=== PATIENT | female | born 1990 | race Caucasian/White ===

== ENCOUNTER 2017-06-07 07:06 | Emergency (ER) | payer MEDICARE, MEDICAID ==
[2017-06-07] MEDS ORDERED: NS 0.9% 1000 ML* 1,000 ML IV ONE (07:33)
[2017-06-07 07:57] LABS: ABS Basophils 0.1 10^3/ul (0-0.2); ABS Eosinophils 0.6 10^3/ul (0-0.6); ABS Lymphocytes 2.3 10^3/ul (1.0-4.8); ABS Monocytes 0.5 10^3/ul (0-0.8); ABS Neutrophils 6.3 10^3/ul (1.5-7.7); ABS Nucleated RBC 0 10^3/ul; Eosinophil % 6.3 % (0-6); Hematocrit 40 % (35-47); Hemoglobin 13.5 g/dl (12.0-16.0); Lymphocyte % 23.6 % (25-47); Mean Corpuscular HGB Conc 34 g/dl (31-36); Mean Corpuscular Hemoglobin 29 pg (27-31); Mean Corpuscular Volume 84 fL (80-97); Mean Platelet Volume 9 um3 (7.4-10.4); Nucleated Red Blood Cells % 0; Platelet Count 305 10^3/ul (150-450); Red Blood Count 4.71 10^6/ul (4.0-5.4); Red Cell Distribution Width 14 % (10.5-15); White Blood Count 9.8 10^3/ul (3.5-10.8)
--- NOTE | 2017-06-07 08:10 | RAD ---
HISTORY: Shortness of breath COMPARISONS: None VIEWS: 1: frontal portable view of the chest at 8:00 AM FINDINGS: LINES AND TUBES: None. CARDIOMEDIASTINAL SILHOUETTE: The cardiomediastinal silhouette is normal for portable technique. PLEURA: The costophrenic angles are sharp. No pleural abnormalities are noted. LUNG PARENCHYMA: The lungs are clear. ABDOMEN: The upper abdomen is clear. There is no subphrenic gas. BONES AND SOFT TISSUES: No bone or soft tissue abnormalities are noted. IMPRESSION: NO ACTIVE CARDIOPULMONARY DISEASE.
[2017-06-07 08:15] LABS: EGFR Non-African American 79.2 (>60)
[2017-06-07] MEDS ORDERED: Azithromycin TAB* 250 MG PO ONE (08:41)
[2017-06-07 09:14] VITALS: BP 134/69
[2017-06-07] MEDS ORDERED: NS 0.9% 1000 ML* 1,000 ML IV SCH (09:15)
--- NOTE | 2017-06-07 09:23 | ED ---
Juan A Reed Angela, scribed for Sriram Morales MD on 06/07/17 at 0727 . Syncope/Near Syncope - HPI Summary HPI Summary: This pt is a 27 y/o female presenting to [facility] c/o near syncopal episode today. Pt reports she went to work at 5:00 AM to [facility]. About 1 hour later, she states she felt like she couldn't breathe and her throat was closing up. Pt notes she felt "like blacking out" and could not gain her balance. She then went on break to drink some water, but her symptoms began again. Pt currently c/ o mild headache, lightheadedness, SOB, dry mouth. She states she is unable to take a deep breath and has pain under her breasts. Denies chest pain, palpitations, fever. Pt has never had these symptoms in the past before. Pt currently has a mild sore throat, she thought she had strep throat 1-2 weeks ago. Denies any PMHx. Pt is a former smoker, quit 2 weeks ago, and former alcohol user, quit 2 years ago. 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 [employer] Onset/Duration: Sudden Onset, Resolved Timing: Constant Context: Unwitnessed Activity At Onset: Other - while working in [facility] Aggravating Factor(s): Nothing Alleviating Factor(s): Nothing Associated Signs And Symptoms: Headache, Lightheadedness, Shortness Of Breath - Allergies/Home Medications Allergies/Adverse Reactions: Allergies Allergy/AdvReac Type Severity Reaction Status Date / Time cefaclor [From [facility]] Allergy Unknown Verified 06/07/17 07:22 Reaction Details PMH/Surg Hx/FS Hx/Imm Hx Endocrine/Hematology History: Denies: Hx Diabetes Cardiovascular History: Denies: Hx Hypertension History: Reports: Hx Kidney Stones Sensory History: Reports: Hx Deafness EENT History: Reports: Hx Deafness - Surgical History Surgery Procedure, Year, and Place: Kidney stone removal Infectious Disease History: No Infectious Disease History: Denies: Traveled Outside the [place] in Last 30 Days - Family History Known Family History: Positive: None - Social History Alcohol Use: None Alcohol Amount: last alcohol drink was 2 years ago Substance Use Type: Reports: None Smoking Status (MU): Former Smoker - quit 2 weeks ago Review of Systems Negative: Fever, Chills ENT: Other - dry mouth Positive: Sore Throat Negative: Palpitations, Chest Pain Positive: Shortness Of Breath Musculoskeletal: Other - pain under her breasts Neurological: Other - POS: lightheadedness Positive: Headache All Other Systems Reviewed And Are Negative: Yes Physical Exam - Summary Physical Exam Summary: VITAL SIGNS: Reviewed. GENERAL: Patient is a well-developed and nourished female who is lying comfortable in the stretcher. Patient is not in any acute respiratory distress. Pt communicates via sign language. HEAD AND FACE: No signs of trauma. No ecchymosis, hematomas or skull depressions. No sinus tenderness. EYES: PERRLA, EOMI x 2, No injected conjunctiva, no nystagmus. EARS: Pt is deaf. Ear canals and tympanic membranes are within normal limits. MOUTH: Oropharynx within normal limits. Oral mucosa is dry. NECK: Supple, trachea is midline, no adenopathy, no JVD, no carotid bruit, no c- spine tenderness, neck with full ROM. CHEST: Symmetric, no tenderness at palpation LUNGS: Clear to auscultation bilaterally. No wheezing or crackles. CVS: Regular rate and rhythm, S1 and S2 present, no murmurs or gallops appreciated. ABDOMEN: Soft, non-tender. No signs of distention. No rebound no guarding, and no masses palpated. Bowel sounds are normal. EXTREMITIES: FROM in all major joints, no edema, no cyanosis or clubbing. NEURO: Alert and oriented x 3. No acute neurological deficits. Speech is normal and follows commands. SKIN: Dry and warm Triage Information Reviewed: Yes Vital Signs On Initial Exam: Initial Vitals Temp Pulse Resp BP Pulse Ox 98.3 F 86 18 132/71 95 06/07/17 07:10 06/07/17 07:10 06/07/17 07:10 06/07/17 07:10 06/07/17 07:10 Vital Signs Reviewed: Yes Diagnostics - Vital Signs Vital Signs Temp Pulse Resp BP Pulse Ox 06/07/17 07:10 98.3 F 86 18 132/71 95 - Laboratory Lab Results: Lab Results 06/07/17 06/07/17 06/07/17 Range/Units 06:52 06:52 07:45 WBC (3.5-10.8) 10^3/ul RBC (4.0-5.4) 10^6/ul Hgb (12.0-16.0) g/dl Hct (35-47) % MCV (80-97) fL MCH (27-31) pg MCHC (31-36) g/dl RDW (10.5-15) % Plt Count (150-450) 10^3/ul MPV (7.4-10.4) um3 Neut % (Auto) (38-83) % Lymph % (Auto) (25-47) % Sibley % (Auto) (0-7) % Eos % (Auto) (0-6) % Baso % (Auto) (0-2) % Absolute Neuts (auto) (1.5-7.7) 10^3/ul Absolute Lymphs (auto) (1.0-4.8) 10^3/ul Absolute Monos (auto) (0-0.8) 10^3/ul Absolute Eos (auto) (0-0.6) 10^3/ul Absolute Basos (auto) (0-0.2) 10^3/ul Absolute Nucleated RBC 10^3/ul Nucleated RBC % Sodium 135 (133-145) mmol/L Potassium 3.7 (3.5-5.0) mmol/L Chloride 103 (101-111) mmol/L Carbon Dioxide 26 (22-32) mmol/L Anion Gap 6 (2-11) mmol/L BUN 15 (6-24) mg/dL Creatinine 0.86 (0.51-0.95) mg/dL Est GFR ( Amer) 101.8 (>60) Est GFR (Non-Af Amer) 79.2 (>60) BUN/Creatinine Ratio 17.4 (8-20) Glucose 104 H (70-100) mg/dL Lactic Acid (0.5-2.0) mmol/L Calcium 9.3 (8.6-10.3) mg/dL Magnesium 1.8 L (1.9-2.7) mg/dL Total Bilirubin 0.20 (0.2-1.0) mg/dL AST 16 (13-39) U/L ALT 28 (7-52) U/L Alkaline Phosphatase 128 H (34-104) U/L Troponin I 0.00 (<0.04) ng/mL B-Natriuretic Peptide ( - 100) pg/mL Total Protein 7.1 (6.4-8.9) g/dL Albumin 3.9 (3.2-5.2) g/dL Globulin 3.2 (2-4) g/dL Albumin/Globulin Ratio 1.2 (1-3) TSH 1.93 (0.34-5.60) mcIU/mL Beta HCG, Quant < 0.60 mIU/mL Serum Alcohol < 10 (<10) mg/dL Influenza A (Rapid) Negative (Negative) Influenza B (Rapid) Negative (Negative) Group A Strep Rapid Positive A (Negative) 06/07/17 06/07/17 06/07/17 Range/Units 07:45 07:45 07:45 WBC 9.8 (3.5-10.8) 10^3/ul RBC 4.71 (4.0-5.4) 10^6/ul Hgb 13.5 (12.0-16.0) g/dl Hct 40 (35-47) % MCV 84 (80-97) fL MCH 29 (27-31) pg MCHC 34 (31-36) g/dl RDW 14 (10.5-15) % Plt Count 305 (150-450) 10^3/ul MPV 9 (7.4-10.4) um3 Neut % (Auto) 64.0 (38-83) % Lymph % (Auto) 23.6 L (25-47) % Sibley % (Auto) 5.3 (0-7) % Eos % (Auto) 6.3 H (0-6) % Baso % (Auto) 0.8 (0-2) % Absolute Neuts (auto) 6.3 (1.5-7.7) 10^3/ul Absolute Lymphs (auto) 2.3 (1.0-4.8) 10^3/ul Absolute Monos (auto) 0.5 (0-0.8) 10^3/ul Absolute Eos (auto) 0.6 (0-0.6) 10^3/ul Absolute Basos (auto) 0.1 (0-0.2) 10^3/ul Absolute Nucleated RBC 0 10^3/ul Nucleated RBC % 0 Sodium (133-145) mmol/L Potassium (3.5-5.0) mmol/L Chloride (101-111) mmol/L Carbon Dioxide (22-32) mmol/L Anion Gap (2-11) mmol/L BUN (6-24) mg/dL Creatinine (0.51-0.95) mg/dL Est GFR ( Amer) (>60) Est GFR (Non-Af Amer) (>60) BUN/Creatinine Ratio (8-20) Glucose (70-100) mg/dL Lactic Acid 1.2 (0.5-2.0) mmol/L Calcium (8.6-10.3) mg/dL Magnesium (1.9-2.7) mg/dL Total Bilirubin (0.2-1.0) mg/dL AST (13-39) U/L ALT (7-52) U/L Alkaline Phosphatase (34-104) U/L Troponin I (<0.04) ng/mL B-Natriuretic Peptide 18 ( - 100) pg/mL Total Protein (6.4-8.9) g/dL Albumin (3.2-5.2) g/dL Globulin (2-4) g/dL Albumin/Globulin Ratio (1-3) TSH (0.34-5.60) mcIU/mL Beta HCG, Quant mIU/mL Serum Alcohol (<10) mg/dL Influenza A (Rapid) (Negative) Influenza B (Rapid) (Negative) Group A Strep Rapid (Negative) Result Diagrams: 06/07/17 07:45 06/07/17 07:45 Lab Statement: Any lab studies that have been ordered have been reviewed, and results considered in the medical decision making process. - Radiology Chest XR Xray Interpretation: No Acute Changes - IMPRESSION: No active cardiopulmonary disease. Dr. Morales has reviewed this radiology report. Radiology Interpretation Completed By: Radiologist - EKG 07:46 Cardiac Rate: NL EKG Rhythm: Sinus Rhythm - at 65 bpm EKG Interpretation: No ST elevation Course/Dx Assessment/Plan: This pt is a 27 y/o female presenting to [facility] c/o near syncopal episode today. Pt reports she went to work at 5:00 AM to [employer]. About 1 hour later, she states she felt like she couldn't breathe and her throat was closing up. Pt notes she felt "like blacking out" and could not gain her balance. She then went on break to drink some water, but her symptoms began again. Pt currently c/o mild headache, lightheadedness, dry mouth. She states she is unable to take a deep breath and has pain under her breasts. Denies chest pain, palpitations, fever. Test results without any significant abnormalities. Influenza A and B are both negative. Rapid strep test is positive for strep throat. Chest XR shows no active cardiopulmonary disease. She was given IVF for dehydration. Therefore, pt will be discharged to home with prescriptions for ibuprofen and azithromycin and follow up from her PCP. She is instructed to return to the ED for any worsening symptoms. Pt is hemodynamically stable, alert and oriented x3. I discussed all the findings and test results with the patient. Patient was instructed to return to the emergency room immediately if any of the symptoms return or worsens. Plan of care was discussed with the patient and understands and agrees. All questions were answered at patient satisfaction. There were no further complaints or concerns. Lung exam before discharge: CTA B/L. Good air exchange. No wheezing or crackles heard. CVS: S1 and S2 present. No murmurs appreciated. Patient is alert and oriented x 3. Patient is hemodynamically stable. Patient will be discharged home with follow up PCP in the next 2-3 days - Diagnoses Provider Diagnoses: Strep pharyngitis, Dehydration Discharge - Discharge Plan Condition: Stable Disposition: HOME Prescriptions: Azithromycin TAB* [Zithromax TAB (Z-SINAI) 250 mg #6 tabs] 250 mg PO DAILY #4 tab Ibuprofen TAB* [Motrin TAB* 600 MG] 600 mg PO Q8H PRN #30 tab PRN Reason: Pain Patient Education Materials: Strep Throat (ED) Forms: *Work Release Referrals: Lissette Au BUSHING AND BROACH OPERATOR [Primary Care Provider] - 3 Days Additional Instructions: Please follow up with your primary care provider. RETURN TO THE ED FOR ANY WORSENING SYMPTOMS. The documentation as recorded by the Juan A hall Angela accurately reflects the service I personally performed and the decisions made by me, Sriram Morales MD.
== END 2017-06-07 09:14 | disposition home or self-care (01) ==
LOC: ED 07:06
DX: J02.0 Streptococcal pharyngitis (principal); E86.0 Dehydration; R51 Headache; J02.9 Acute pharyngitis, unspecified; R42 Dizziness and giddiness; R06.02 Shortness of breath; Z87.891 Personal history of nicotine dependence
CPT/HCPCS: 36415; 71045; 80053; 80320; 83605; 83735; 83880; 84443; 84484; 84702; 85025; 87502; 87651; 93005; 96374; 99283; A9270-GY; G0480

== ENCOUNTER 2017-08-31 11:34 | Emergency (ER) | payer MEDICARE, MEDICAID ==
[2017-08-31] MEDS ORDERED: Ibuprofen TAB* 800 MG PO ONE (12:12)
--- NOTE | 2017-08-31 13:00 | RAD ---
INDICATION: "Dropped mail box on foot". COMPARISON: None. TECHNIQUE: 3 views of the right foot were obtained. FINDINGS: The adequately corticated bones are properly aligned. Joint spaces appear maintained. No fracture, dislocation or focal bony abnormality is seen. IMPRESSION: Normal radiograph of the right foot. If the patient's symptoms persist, follow-up imaging is recommended.
--- NOTE | 2017-08-31 13:14 | ED ---
Lower Extremity - HPI Summary HPI Summary: Patient presents with right foot pain status post dropping a mailbox on it earlier today. She is able to bear weight but it is painful. She has some numbness over the top of her foot as well. Denies any break in the skin or bleeding. She is tried ice which seems to make it worse. Has not taken anything for pain prior to arrival. No previous injury to this foot. Note: Tubal ligation - History of Current Complaint Chief Complaint: EDExtremityLower Stated Complaint: RT FOOT INJURY/PAIN Time Seen by Provider: 08/31/17 11:47 Hx Obtained From: Patient Pain Intensity: 8 - Allergies/Home Medications Allergies/Adverse Reactions: Allergies Allergy/AdvReac Type Severity Reaction Status Date / Time [facility] [[facility] Allergy Unknown Verified 08/31/17 11:43 Reaction Details Home Medications: Home Medications NK [No Home Medications Reported] 08/31/17 [History Confirmed 08/31/17] PMH/Surg Hx/FS Hx/Imm Hx Previously Healthy: Yes Endocrine/Hematology History: Denies: Hx Anticoagulant Therapy, Hx Blood Disorders, Hx Diabetes, Hx Unexplained Bleeding, Hx Coagulopothy Cardiovascular History: Denies: Hx Hypertension History: Reports: Hx Kidney Stones Sensory History: Reports: Hx Deafness - uses sign language EENT History: Reports: Hx Deafness - uses sign language - Surgical History Surgery Procedure, Year, and Place: Kidney stone removal Infectious Disease History: No Infectious Disease History: Denies: Traveled Outside the [place] in Last 30 Days - Family History Known Family History: Positive: None - Social History Alcohol Use: Rare Alcohol Amount: last alcohol drink was 2 years ago Hx Substance Use: No Substance Use Type: Reports: None Hx Tobacco Use: Yes - not currently Smoking Status (MU): Former Smoker Review of Systems Negative: Vomiting, Nausea Positive: no symptoms reported Positive: Arthralgia. Negative: Myalgia, Decreased ROM, Edema Skin: Negative Negative: Rash, Bruising Positive: Numbness. Negative: Weakness, Paresthesia Psychological: Normal All Other Systems Reviewed And Are Negative: Yes Physical Exam Triage Information Reviewed: Yes Vital Signs On Initial Exam: Initial Vitals Temp Pulse Resp BP Pulse Ox 97.6 F 75 16 155/114 97 08/31/17 11:40 08/31/17 11:40 08/31/17 11:40 08/31/17 11:40 08/31/17 11:40 Vital Signs Reviewed: Yes Appearance: Positive: Well-Appearing, No Pain Distress, Well-Nourished Skin: Positive: Warm, Skin Color Reflects Adequate Perfusion, Dry - No erythema , no ecchymosis, no break in skin over the dorsum of right foot where mailbox fell Head/Face: Positive: Normal Head/Face Inspection Eyes: Positive: EOMI ENT: Negative: Hearing grossly normal - Patient is deaf - we communicate by basic sign language and writing on a piece of paper Respiratory/Lung Sounds: Positive: Breath Sounds Present Cardiovascular: Positive: Pulses are Symmetrical in both Upper and Lower Extremities. Negative: Leg Edema Left, Leg Edema Right Musculoskeletal: Positive: Strength/ROM Intact, Pain @ - Rt dorsal MT's - no gross deformity, no crepitus Neurological: Positive: Normal, Sensory/Motor Intact, Alert, Oriented to Person Place, Time Psychiatric: Positive: Normal Diagnostics - Vital Signs Vital Signs Temp Pulse Resp BP Pulse Ox 08/31/17 11:40 97.6 F 75 16 155/114 97 - Laboratory Lab Statement: Any lab studies that have been ordered have been reviewed, and results considered in the medical decision making process. Lower Extremity Course/Dx - Course Course Of Treatment: XR: no fx, no dislocation - Diagnoses Provider Diagnoses: Contusion of right foot Discharge - Sign-Out/Discharge Documenting (check all that apply): Discharge/Admit/Transfer - Discharge Plan Condition: Stable Disposition: HOME Patient Education Materials: Foot Contusion (ED), Crutch Instructions (ED) Referrals: Lissette Au NP [Primary Care Provider] - Additional Instructions: REST, ICE, ELEVATE AND WEAR MIGUEL WRAP FOR COMFORT FROM PAIN/SWELLING You may take ibuprofen alternating with acetaminophen as needed for pain If pain persists beyond 2 weeks, follow-up with PCP *If you develop numbness, tingling, weakness, swelling or skin discoloration, loosen MIGUEL wrap and elevate leg for 20 minutes. If symptoms persist, return to ED - Billing Disposition and Condition Condition: STABLE Disposition: Home
[2017-08-31 13:40] VITALS: BP 139/67
== END 2017-08-31 13:39 | disposition home or self-care (01) ==
LOC: ED 11:34
DX: S90.31XA Contusion of right foot, initial encounter (principal); W20.8XXA Other cause of strike by thrown, projected or falling object, initial encounter; Y93.9 Activity, unspecified; Y92.9 Unspecified place or not applicable; H91.93 Unspecified hearing loss, bilateral; Z87.442 Personal history of urinary calculi; Z87.891 Personal history of nicotine dependence; Z88.1 Allergy status to other antibiotic agents
CPT/HCPCS: 99282; A9270-GY

== ENCOUNTER 2017-09-06 14:58 | Emergency (ER) | payer MEDICAID, MEDICARE, OTHER ==
[2017-09-06 16:13] VITALS: BP 110/76
--- NOTE | 2017-09-06 16:21 | ED ---
Lower Extremity - HPI Summary HPI Summary: 27 yr old with foot injury by dropping mail bin on right foot on 08/31. She feels totally fine, recovered and is walking with no issues at all. She is asking for a return to work note. Sign language interpretor was utilized during history, physical and explaining return to work and discharge instruction. - History of Current Complaint Chief Complaint: UCLowerExtremity Stated Complaint: WC-RT FOOT INJURY Time Seen by Provider: 09/06/17 16:08 Hx Last Menstrual Period: July 2017 Pain Intensity: 0 - Allergies/Home Medications Allergies/Adverse Reactions: Allergies Allergy/AdvReac Type Severity Reaction Status Date / Time cefaclor [From [facility]] Allergy Unknown Verified 09/06/17 16:14 Reaction Details PMH/Surg Hx/FS Hx/Imm Hx Endocrine/Hematology History: Denies: Hx Anticoagulant Therapy, Hx Blood Disorders, Hx Diabetes, Hx Unexplained Bleeding Cardiovascular History: Denies: Hx Hypertension History: Reports: Hx Kidney Stones Sensory History: Reports: Hx Deafness - uses sign language - Surgical History Surgery Procedure, Year, and Place: Kidney stone removal Infectious Disease History: No Infectious Disease History: Denies: Traveled Outside the [place] in Last 30 Days - Family History Known Family History: Positive: None - Social History Alcohol Use: Occasionally Alcohol Amount: last alcohol drink was 2 years ago Hx Substance Use: No Substance Use Type: Reports: None Hx Tobacco Use: Yes - not currently Smoking Status (MU): Former Smoker Review of Systems Constitutional: Negative Positive: Other - injury to right foot. All Other Systems Reviewed And Are Negative: Yes Physical Exam Triage Information Reviewed: Yes Vital Signs On Initial Exam: Initial Vitals Temp Pulse Resp BP 98.3 F 72 18 110/76 09/06/17 16:10 09/06/17 16:10 09/06/17 16:10 09/06/17 16:10 Vital Signs Reviewed: Yes Appearance: Positive: Well-Appearing, No Pain Distress Skin: Positive: Warm, Skin Color Reflects Adequate Perfusion Head/Face: Positive: Normal Head/Face Inspection Neck: Positive: Supple, Nontender Respiratory/Lung Sounds: Positive: Other - normal effort Cardiovascular: Positive: Pulses are Symmetrical in both Upper and Lower Extremities Abdomen Description: Negative: Distended Musculoskeletal: Positive: Strength/ROM Intact, Other - no swelling, redness, bruise or tenderness to the foot. Neurological: Positive: Alert, Oriented to Person Place, Time, Other - uses sign language for communication. Psychiatric: Positive: Normal - [place] Coma Scale Best Eye Response: 4 - Spontaneous Best Motor Response: 6 - Obeys Commands Best Verbal Response: 5 - Oriented Coma Scale Total: 15 Diagnostics - Vital Signs Vital Signs Temp Pulse Resp BP 09/06/17 16:10 98.3 F 72 18 110/76 - Laboratory Lab Statement: Any lab studies that have been ordered have been reviewed, and results considered in the medical decision making process. Lower Extremity Course/Dx - Course Course Of Treatment: 27 yr old with contusion to foot and doint well now asymptomatic. DC home. Return to work. - Diagnoses Provider Diagnoses: Contusion of foot, right Discharge - Sign-Out/Discharge Documenting (check all that apply): Discharge/Admit/Transfer - Discharge Plan Condition: Good Disposition: HOME Patient Education Materials: Contusion in Adults (ED) Forms: *Work Release Referrals: Kristie Au MD [Primary Care Provider] - 2 Days - Billing Disposition and Condition Condition: GOOD Disposition: Home
== END 2017-09-06 16:26 | disposition home or self-care (01) ==
LOC: UCCORT 14:58
DX: S90.31XA Contusion of right foot, initial encounter (principal); W22.8XXA Striking against or struck by other objects, initial encounter; Y92.9 Unspecified place or not applicable; Z87.891 Personal history of nicotine dependence; Z87.442 Personal history of urinary calculi
CPT/HCPCS: 36415; 86703; 99211; G0463

== ENCOUNTER 2017-12-27 17:23 | Emergency (ER) | payer SELFPAY ==
[2017-12-27] MEDS ORDERED: Ondansetron ODT TAB* 4 MG PO ONE (18:47)
[2017-12-27 19:50] LABS: ABS Basophils 0 10^3/ul (0-0.2); ABS Eosinophils 0.1 10^3/ul (0-0.6); ABS Lymphocytes 1.1 10^3/ul (1.0-4.8); ABS Monocytes 0.7 10^3/ul (0-0.8); ABS Neutrophils 3.5 10^3/ul (1.5-7.7); ABS Nucleated RBC 0 10^3/ul; Eosinophil % 1.3 % (0-6); Hematocrit 40 % (35-47); Hemoglobin 13.6 g/dl (12.0-16.0); Lymphocyte % 20.6 % (25-47); Mean Corpuscular HGB Conc 34 g/dl (31-36); Mean Corpuscular Hemoglobin 29 pg (27-31); Mean Corpuscular Volume 86 fL (80-97); Mean Platelet Volume 9.4 um3 (7.4-10.4); Nucleated Red Blood Cells % 0; Platelet Count 205 10^3/ul (150-450); Red Blood Count 4.68 10^6/ul (4.00-5.40); Red Cell Distribution Width 14 % (10.5-15); White Blood Count 5.4 10^3/ul (3.5-10.8)
[2017-12-27 20:13] LABS: Urine Appearance Cloudy; Urine Blood Negative (Negative); Urine Color Yellow; Urine Ketones Negative (Negative); Urine Protein Negative (Negative); Urine Red Blood Cell Trace(0-2/hpf) (Absent); Urine Specific Gravity 1.023 (1.010-1.030); Urine Urobilinogen Negative (Negative); Urine White Blood Cell 1+(6-10/hpf) (Absent)
[2017-12-27 20:15] LABS: EGFR Non-African American 77.1 (>60)
--- NOTE | 2017-12-27 20:50 | ED ---
Abdominal Pain/Female - HPI Summary HPI Summary: Patient complains of left flank pain, fever up to 100, N/V/D, lightheadedness, increased urinary urge and decreased oral, mild cough and sore throat 2 days. Patient states history of kidney stones. Medical history is none. Abdominal/ pelvic surgical history is none. - History of Current Complaint Chief Complaint: EDGeneral Stated Complaint: FEVER/VOMITING Time Seen by Provider: 12/27/17 18:42 Hx Obtained From: Patient Hx Last Menstrual Period: July 2017 Onset/Duration: Gradual Onset Timing: Intermittent Episode Lasting Severity Initially: Moderate Severity Currently: Moderate Pain Intensity: 4 Pain Scale Used: 0-10 Numeric Location: Discrete At: LUQ, Flank Radiates to: Flank Character: Sharp, Cramping Aggravating Factor(s): Nothing Alleviating Factor(s): Nothing Associated Signs and Symptoms: Positive: Cough, Back Pain, Urinary Symptoms, Nausea, Vomiting, Diarrhea Allergies/Adverse Reactions: Allergies Allergy/AdvReac Type Severity Reaction Status Date / Time cefaclor [From Ceclor] Allergy Unknown Verified 09/06/17 16:14 Reaction Details PMH/Surg Hx/FS Hx/Imm Hx Endocrine/Hematology History: Denies: Hx Anticoagulant Therapy, Hx Blood Disorders, Hx Diabetes, Hx Unexplained Bleeding Cardiovascular History: Denies: Hx Hypertension History: Reports: Hx Kidney Stones - Surgical History Surgery Procedure, Year, and Place: Kidney stone removal Infectious Disease History: No Infectious Disease History: Denies: Traveled Outside the [place] in Last 30 Days - Family History Known Family History: Positive: None - Social History Alcohol Use: None Alcohol Amount: last alcohol drink was 2 years ago Hx Substance Use: No Substance Use Type: Reports: None Hx Tobacco Use: Yes - not currently Smoking Status (MU): Former Smoker Review of Systems Positive: Fever Eyes: Negative Positive: Sore Throat Cardiovascular: Negative Respiratory: Negative Positive: Cough Positive: Abdominal Pain, Vomiting, Nausea Positive: urgency Musculoskeletal: Negative Skin: Negative Neurological: Negative Psychological: Normal All Other Systems Reviewed And Are Negative: Yes Physical Exam - Summary Physical Exam Summary: Tenderness to left upper quadrant and left flank. Positive left CVA tenderness. Pharyngeal erythema. No exudates. Triage Information Reviewed: Yes Vital Signs On Initial Exam: Initial Vitals Temp Pulse Resp BP Pulse Ox 100.9 F 93 20 119/72 98 12/27/17 17:26 12/27/17 17:26 12/27/17 17:26 12/27/17 17:26 12/27/17 17:26 Vital Signs Reviewed: Yes Appearance: Positive: Well-Appearing Skin: Positive: Warm Head/Face: Positive: Normal Head/Face Inspection Eyes: Positive: Normal ENT: Positive: Pharyngeal erythema, TMs normal, Uvula midline. Negative: Tonsillar swelling, Tonsillar exudate, Trismus, Muffled voice, Hoarse voice Neck: Positive: Supple Respiratory/Lung Sounds: Positive: Clear to Auscultation Cardiovascular: Positive: Normal Abdomen Description: Positive: Other: - tenderness umbilical area and left upper quadrant. CVA tenderness left side. Musculoskeletal: Positive: Normal Neurological: Positive: Normal Psychiatric: Positive: Normal AVPU Assessment: Alert - Manuel Coma Scale Best Eye Response: 4 - Spontaneous Best Motor Response: 6 - Obeys Commands Best Verbal Response: 5 - Oriented Coma Scale Total: 15 Diagnostics - Vital Signs Vital Signs Temp Pulse Resp BP Pulse Ox 12/27/17 17:26 100.9 F 93 20 119/72 98 - Laboratory Lab Results: Lab Results 12/27/17 12/27/17 12/27/17 Range/Units 19:40 19:40 19:41 WBC 5.4 (3.5-10.8) 10^3/ul RBC 4.68 (4.00-5.40) 10^6/ul Hgb 13.6 (12.0-16.0) g/dl Hct 40 (35-47) % MCV 86 (80-97) fL MCH 29 (27-31) pg MCHC 34 (31-36) g/dl RDW 14 (10.5-15) % Plt Count 205 (150-450) 10^3/ul MPV 9.4 (7.4-10.4) um3 Neut % (Auto) 64.9 (38-83) % Lymph % (Auto) 20.6 L (25-47) % Surry % (Auto) 12.3 H (0-7) % Eos % (Auto) 1.3 (0-6) % Baso % (Auto) 0.9 (0-2) % Absolute Neuts (auto) 3.5 (1.5-7.7) 10^3/ul Absolute Lymphs (auto) 1.1 (1.0-4.8) 10^3/ul Absolute Monos (auto) 0.7 (0-0.8) 10^3/ul Absolute Eos (auto) 0.1 (0-0.6) 10^3/ul Absolute Basos (auto) 0 (0-0.2) 10^3/ul Absolute Nucleated RBC 0 10^3/ul Nucleated RBC % 0 Sodium 136 (135-145) mmol/L Potassium 3.8 (3.5-5.0) mmol/L Chloride 106 (101-111) mmol/L Carbon Dioxide 26 (22-32) mmol/L Anion Gap 4 (2-11) mmol/L BUN 14 (6-24) mg/dL Creatinine 0.88 (0.51-0.95) mg/dL Est GFR ( Amer) 93.3 (>60) Est GFR (Non-Af Amer) 77.1 (>60) BUN/Creatinine Ratio 15.9 (8-20) Glucose 99 (70-100) mg/dL Calcium 9.1 (8.6-10.3) mg/dL Total Bilirubin 0.30 (0.2-1.0) mg/dL AST 51 H (13-39) U/L ALT 84 H (7-52) U/L Alkaline Phosphatase 114 H (34-104) U/L C-Reactive Protein 17.30 H (<8.01) mg/L Total Protein 6.9 (6.4-8.9) g/dL Albumin 4.3 (3.2-5.2) g/dL Globulin 2.6 (2-4) g/dL Albumin/Globulin Ratio 1.7 (1-3) Beta HCG, Quant < 0.60 mIU/mL Urine Color Yellow Urine Appearance Cloudy Urine pH 5.0 (5-9) Ur Specific Preston 1.023 (1.010-1.030) Urine Protein Negative (Negative) Urine Ketones Negative (Negative) Urine Blood Negative (Negative) Urine Nitrate Negative (Negative) Urine Bilirubin Negative (Negative) Urine Urobilinogen Negative (Negative) Ur Leukocyte Esterase 1+ A (Negative) Urine WBC (Auto) 1+(6-10/hpf) A (Absent) Urine RBC (Auto) Trace(0-2/hpf) (Absent) Ur Squamous Epith Cells Present A (Absent) Urine Bacteria Absent (Absent) Urine Glucose Negative (Negative) Influenza A (Rapid) (Negative) Influenza B (Rapid) (Negative) Group A Strep Rapid 12/27/17 12/27/17 12/27/17 Range/Units 20:09 20:14 20:37 WBC (3.5-10.8) 10^3/ul RBC (4.00-5.40) 10^6/ul Hgb (12.0-16.0) g/dl Hct (35-47) % MCV (80-97) fL MCH (27-31) pg MCHC (31-36) g/dl RDW (10.5-15) % Plt Count (150-450) 10^3/ul MPV (7.4-10.4) um3 Neut % (Auto) (38-83) % Lymph % (Auto) (25-47) % Surry % (Auto) (0-7) % Eos % (Auto) (0-6) % Baso % (Auto) (0-2) % Absolute Neuts (auto) (1.5-7.7) 10^3/ul Absolute Lymphs (auto) (1.0-4.8) 10^3/ul Absolute Monos (auto) (0-0.8) 10^3/ul Absolute Eos (auto) (0-0.6) 10^3/ul Absolute Basos (auto) (0-0.2) 10^3/ul Absolute Nucleated RBC 10^3/ul Nucleated RBC % Sodium (135-145) mmol/L Potassium (3.5-5.0) mmol/L Chloride (101-111) mmol/L Carbon Dioxide (22-32) mmol/L Anion Gap (2-11) mmol/L BUN (6-24) mg/dL Creatinine (0.51-0.95) mg/dL Est GFR ( Amer) (>60) Est GFR (Non-Af Amer) (>60) BUN/Creatinine Ratio (8-20) Glucose (70-100) mg/dL Calcium (8.6-10.3) mg/dL Total Bilirubin (0.2-1.0) mg/dL AST (13-39) U/L ALT (7-52) U/L Alkaline Phosphatase (34-104) U/L C-Reactive Protein (<8.01) mg/L Total Protein (6.4-8.9) g/dL Albumin (3.2-5.2) g/dL Globulin (2-4) g/dL Albumin/Globulin Ratio (1-3) Beta HCG, Quant mIU/mL Urine Color Urine Appearance Urine pH (5-9) Ur Specific Preston (1.010-1.030) Urine Protein (Negative) Urine Ketones (Negative) Urine Blood (Negative) Urine Nitrate (Negative) Urine Bilirubin (Negative) Urine Urobilinogen (Negative) Ur Leukocyte Esterase (Negative) Urine WBC (Auto) (Absent) Urine RBC (Auto) (Absent) Ur Squamous Epith Cells (Absent) Urine Bacteria (Absent) Urine Glucose (Negative) Influenza A (Rapid) Negative (Negative) Influenza B (Rapid) Negative (Negative) Group A Strep Rapid Pending Positive A Result Diagrams: 12/27/17 19:40 12/27/17 19:40 Lab Statement: Any lab studies that have been ordered have been reviewed, and results considered in the medical decision making process. - CT ct ab/pel w/o CT Interpretation: No Acute Changes CT Interpretation Completed By: Radiologist Abdominal Pain Fem Course/Dx - Course Course Of Treatment: Patient complains of left flank pain, fever up to 100, N/V/ D, lightheadedness, increased urinary urge and decreased oral, mild cough and sore throat 2 days. Patient states history of kidney stones. Medical history is none. Abdominal/pelvic surgical history is none. Physical exam:Tenderness to left upper quadrant and left flank. Positive left CVA tenderness. Pharyngeal erythema. No exudates. Temp 100.9, Vital signs otherwise within normal limits. CT abdomen and pelvis without contrast negative for stone. No active nausea or vomiting here in the ED. Positive UTI. Positive strep. Rx for Bactrim. Rx for azithromycin. Rx for Phenergan. Allergy to Ceclor. - Diagnoses Provider Diagnoses: UTI (urinary tract infection), Strep throat, Nausea & vomiting Discharge - Sign-Out/Discharge Documenting (check all that apply): Patient Departure - Discharge Plan Condition: Stable Disposition: HOME Prescriptions: Azithromycin 250 mg PO DAILY 4 Days #4 tablet Promethazine TAB* [Phenergan TAB*] 25 mg PO Q8H PRN 5 Days #15 tab PRN Reason: Nausea Sulfamethox/Trimethoprim DS* [Bactrim DS 800/160 TAB*] 1 tab PO BID 10 Days #20 tab Patient Education Materials: Urinary Tract Infection in Women (ED), Strep Throat (ED), Acute Nausea and Vomiting (ED) Referrals: Kristie Au MD [Primary Care Provider] - Additional Instructions: Take antibiotics as directed. Return to the ED for any new or worsening symptoms - Billing Disposition and Condition Condition: STABLE Disposition: Home
--- NOTE | 2017-12-27 21:04 | RAD ---
EXAM: CT Abdomen and Pelvis Without Intravenous Contrast CLINICAL HISTORY: 27 years old, female; Pain; Abdominal pain; Additional info: Left flank pain, HX of kidney stones TECHNIQUE: Axial computed tomography images of the abdomen and pelvis without intravenous contrast. All CT scans at this facility use at least one of these dose optimization techniques: automated exposure control; mA and/or kV adjustment per patient size (includes targeted exams where dose is matched to clinical indication); or iterative reconstruction. Coronal and sagittal reformatted images were created and reviewed. COMPARISON: No relevant prior studies available. FINDINGS: Lung bases: Normal. No mass. No consolidation. ABDOMEN: Liver: Normal. Normal size. No masses. Gallbladder and bile ducts: Normal. No radiopaque calculi. No ductal dilation. Pancreas: Normal. No ductal dilation. Spleen: Normal. No splenomegaly. Adrenals: Normal. No mass. Kidneys and ureters: No renal solid cortical lesions, calculi, or pelvocaliectasis. Stomach and bowel: Incompletely distended grossly normal stomach. Normal caliber small bowel. No colonic masses or segmental wall thickening. PELVIS: Appendix: Nonvisualized appendix with no secondary findings to suggest appendicitis. Bladder: Thin-walled bladder with no focal nodularity, perivesicular stranding, or calcifications. No stones. Reproductive: Uterus and ovaries are normal. Bilateral fallopian tube closure devices. ABDOMEN and PELVIS: Intraperitoneal space: Normal. No pneumoperitoneum. No ascities. Bones/joints: No fractures. No suspicious bone lesions. Soft tissues: Normal. No hernias. Vasculature: Normal. No abdominal aortic aneurysm. Lymph nodes: Normal. No enlarged lymph nodes. IMPRESSION: No CT findings to correlate with patient's symptomatology. Specifically no obstructing renal or ureteral calculi.
[2017-12-27] MEDS ORDERED: Azithromycin TAB* 250 MG PO ONE (21:12)
[2017-12-27] MEDS ORDERED: Sulfamethox/Trimethoprim DS 800/160* TAB PO ONE (21:13)
[2017-12-27 21:36] VITALS: BP 104/62
== END 2017-12-27 21:35 | disposition home or self-care (01) ==
LOC: ED 17:23
DX: N39.0 Urinary tract infection, site not specified (principal); J02.0 Streptococcal pharyngitis; R10.84 Generalized abdominal pain; R05 Cough; M54.9 Dorsalgia, unspecified; R11.2 Nausea with vomiting, unspecified; Z87.891 Personal history of nicotine dependence
CPT/HCPCS: 36415; 74176; 80053; 81003; 81015; 84702; 85025; 86140; 87086; 87651; 99282; A9270-GY

== ENCOUNTER 2018-02-03 10:46 | Emergency (ER) | payer SELFPAY ==
[2018-02-03] MEDS ORDERED: Naproxen TAB* 250 MG PO ONE (12:13)
[2018-02-03 12:51] VITALS: BP 117/68
--- NOTE | 2018-02-03 17:20 | ED ---
Back Pain - HPI Summary HPI Summary: Patient is a 27-year-old female who presents emergency department for left- sided low back pain times several weeks. Patient states the pain radiates into her left leg and feels like a burning sensation at times. Walking and activity makes symptoms worse. Rest makes symptoms better. Patient has 2 young children at home and works at [employer] where she lifts occasionally. She denies any initial injury. Chin has a history of kidney stones as well as kidney infections. Patient states her pain today does not seem similar to stones infection in the past. She denies fever, chills, vomiting, nausea. Patient is deaf and certified court interpreter was used for sign language. 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 Hx Last Menstrual Period: July 2017 Pain Intensity: 0 Pain Scale Used: 0-10 Numeric - Allergies/Home Medications Allergies/Adverse Reactions: Allergies Allergy/AdvReac Type Severity Reaction Status Date / Time cefaclor [From Ceclor] Allergy Unknown Verified 09/06/17 16:14 Reaction Details PMH/Surg Hx/FS Hx/Imm Hx Previously Healthy: Yes Endocrine/Hematology History: Denies: Hx Anticoagulant Therapy, Hx Blood Disorders, Hx Diabetes, Hx Unexplained Bleeding Cardiovascular History: Denies: Hx Hypertension History: Reports: Hx Kidney Stones - Surgical History Surgery Procedure, Year, and Place: Kidney stone removal Infectious Disease History: No Infectious Disease History: Denies: Traveled Outside the [place] in Last 30 Days - Family History Known Family History: Positive: None, Non-Contributory - Social History Occupation: Employed Full-time Lives: With Family Alcohol Use: None Alcohol Amount: last alcohol drink was 2 years ago Hx Substance Use: No Substance Use Type: Reports: None Hx Tobacco Use: Yes - not currently Smoking Status (MU): Former Smoker Review of Systems Constitutional: Negative Negative: Fever, Chills Positive: Abdominal Pain. Negative: Vomiting, Nausea Genitourinary: Negative Negative: flank pain, hematuria Positive: Other - Left lower back pain that radiates into leg with a burning sensation. Skin: Negative Positive: Paresthesia. Negative: Weakness, Numbness All Other Systems Reviewed And Are Negative: Yes Physical Exam Triage Information Reviewed: Yes Vital Signs On Initial Exam: Initial Vitals Temp Pulse Resp BP Pulse Ox 97.8 F 90 18 124/85 96 02/03/18 10:49 02/03/18 10:49 02/03/18 10:49 02/03/18 10:49 02/03/18 10:49 Vital Signs Reviewed: Yes Appearance: Positive: Well-Appearing - Patient sitting up in bed in no acute distress. Pleasant. Skin: Positive: Warm, Dry Head/Face: Positive: Normal Head/Face Inspection Eyes: Positive: Normal, EOMI Neck: Positive: Supple Musculoskeletal: Positive: Normal, Strength/ROM Intact, Other - 5 of 5 strength in lower extremities. And related without difficulty. Pain over left SI joint. Neurological: Positive: Normal, CN Intact II-III Psychiatric: Positive: Affect/Mood Appropriate Diagnostics - Vital Signs Vital Signs Temp Pulse Resp BP Pulse Ox 02/03/18 12:50 97.8 F 48 19 117/68 98 02/03/18 10:49 97.8 F 90 18 124/85 96 - Laboratory Lab Statement: Any lab studies that have been ordered have been reviewed, and results considered in the medical decision making process. Back Pain Course/Dx - Course Course Of Treatment: Patient presenting with left low back and radiates into her leg. No neurological deficits. Embedded without difficulty. Patient states pain is different from her previous kidney stones and infections. Symptoms are most consistent with sciatica. Started on anti-inflammatories. Advised to follow-up with PCP. Apply warm compresses to back. Avoid heavy lifting. Patient understands and agrees with plan. - Diagnoses Differential Diagnosis/HQI/PQRI: Positive: Arthritis, Herniated Disc, Renal Colic, Strain, Sprain Provider Diagnoses: Sciatica Discharge - Sign-Out/Discharge Documenting (check all that apply): Patient Departure - Discharge Plan Condition: Good Disposition: HOME Prescriptions: Naproxen [Naprosyn 500 mg tab] 500 mg PO Q12H #20 tablet Naproxen [Naproxen 500 mg tab] 500 mg PO Q12H #20 tablet Patient Education Materials: Sciatica (ED) Referrals: Kristie Au MD [Primary Care Provider] - Additional Instructions: Schedule a follow up appointment with your PCP Naproxen as directed for pain Apply heat intermittently Avoid heavy lifting Return to ER if symptoms change or worsen - Billing Disposition and Condition Condition: GOOD Disposition: Home
== END 2018-02-03 12:50 | disposition home or self-care (01) ==
LOC: ED 10:46
DX: M54.30 Sciatica, unspecified side (principal); Z87.442 Personal history of urinary calculi; Z87.891 Personal history of nicotine dependence
CPT/HCPCS: 99281; A9270-GY

== ENCOUNTER 2018-04-26 05:42 | Emergency (ER) | payer MEDICARE ==
[2018-04-26 07:02] LABS: ABS Basophils 0.1 10^3/ul (0-0.2); ABS Eosinophils 0.3 10^3/ul (0-0.6); ABS Lymphocytes 1.7 10^3/ul (1.0-4.8); ABS Monocytes 0.4 10^3/ul (0-0.8); ABS Neutrophils 4.2 10^3/ul (1.5-7.7); ABS Nucleated RBC 0 10^3/ul; Eosinophil % 4.6 %; Hematocrit 41 % (35-47); Hemoglobin 13.7 g/dl (12.0-16.0); Lymphocyte % 25.2 %; Mean Corpuscular HGB Conc 34 g/dl (31-36); Mean Corpuscular Hemoglobin 29 pg (27-31); Mean Corpuscular Volume 87 fL (80-97); Mean Platelet Volume 9.3 fL (7.4-10.4); Nucleated Red Blood Cells % 0; Platelet Count 226 10^3/ul (150-450); Red Blood Count 4.65 10^6/ul (4.00-5.40); Red Cell Distribution Width 14 % (10.5-15); White Blood Count 6.7 10^3/ul (3.5-10.8)
--- NOTE | 2018-04-26 07:06 | ED ---
Headache - HPI Summary HPI Summary: Patient is a 28-year-old female presenting to the ED with 3 days of headache and left sided hip pain. Patient states she has a history of blood clots and is concerned over blood clot in the brain. She also states there has been swelling to the right side of her head over the past 3 days. Headache is worst of life, but rates this pain an 8/10 over the past 3 days but currently as 6/ 10. She just noticed the swelling to the right side of the head this morning. She is not on blood thinners. She did not take any Tylenol or ibuprofen for relief. She denies any fevers, sweats, chills. Denies any cold or flulike symptoms. She did not have her flu vaccine this year. Denies blurry vision, double vision, unsteady gait, confusion or memory loss. - History Of Current Complaint Chief Complaint: EDHeadache Stated Complaint: HEADACHE Time Seen by Provider: 04/26/18 06:22 Hx Obtained From: Patient Hx Last Menstrual Period: July 2017 Onset/Duration: Sudden Onset Initially Headache Was: "Worst Headache Ever" - 8 Currently Pain Is: Current Pain Scale(0-10)= - 6 Timing: Constant Character: Pressure Aggravating Factor: Nothing Allevating Factors: Nothing Associated Signs And Symptoms: Negative - Risk Factors SAH Risk Factors: Negative Temporal Arteritis Risk Factors: Negative - Allergies/Home Medications Allergies/Adverse Reactions: Allergies Allergy/AdvReac Type Severity Reaction Status Date / Time cefaclor [From [facility]] Allergy Unknown Verified 09/06/17 16:14 Reaction Details PMH/Surg Hx/FS Hx/Imm Hx Previously Healthy: Yes Endocrine/Hematology History: Denies: Hx Anticoagulant Therapy, Hx Blood Disorders, Hx Diabetes, Hx Unexplained Bleeding Cardiovascular History: Denies: Hx Hypertension History: Reports: Hx Kidney Stones - Surgical History Surgery Procedure, Year, and Place: Kidney stone removal Infectious Disease History: No Infectious Disease History: Denies: Traveled Outside the [place] in Last 30 Days - Family History Known Family History: Positive: None, Non-Contributory - Social History Occupation: Employed Full-time Lives: With Family Alcohol Use: Rare Alcohol Amount: last alcohol drink was 2 years ago Hx Substance Use: No Substance Use Type: Reports: None Hx Tobacco Use: Yes - not currently Smoking Status (MU): Light Every Day Tobacco Smoker Review of Systems Negative: Fever, Chills, Fatigue, Skin Diaphoresis Negative: Blurred Vision, Drainage Negative: Epistaxis, Sore Throat Negative: Palpitations, Chest Pain Negative: Shortness Of Breath, Cough Genitourinary: Negative Positive: no symptoms reported, see HPI Positive: Myalgia - left sided pain just above the hip Positive: Headache All Other Systems Reviewed And Are Negative: Yes Physical Exam Triage Information Reviewed: Yes Vital Signs On Initial Exam: Initial Vitals Temp Pulse Resp BP Pulse Ox 97.3 F 55 16 125/60 99 04/26/18 05:44 04/26/18 05:44 04/26/18 05:44 04/26/18 05:44 04/26/18 05:44 Vital Signs Reviewed: Yes Appearance: Positive: Well-Appearing, Well-Nourished Skin: Positive: Skin Color Reflects Adequate Perfusion Head/Face: Positive: Normal Head/Face Inspection Eyes: Positive: EOMI, MIKAL, Conjunctiva Clear Neck: Positive: No Lymphadenopathy Respiratory/Lung Sounds: Positive: Clear to Auscultation, Breath Sounds Present Cardiovascular: Positive: Pulses are Symmetrical in both Upper and Lower Extremities Musculoskeletal: Positive: Strength/ROM Intact, Other - no tenderness on palpation to the left sided pain just above the hip Neurological: Positive: Speech Normal Psychiatric: Positive: Normal, Affect/Mood Appropriate Diagnostics - Vital Signs Vital Signs Temp Pulse Resp BP Pulse Ox 04/26/18 05:44 97.3 F 55 16 125/60 99 - Laboratory Lab Results: Lab Results 04/26/18 Range/Units 06:53 WBC 6.7 (3.5-10.8) 10^3/ul RBC 4.65 (4.00-5.40) 10^6/ul Hgb 13.7 (12.0-16.0) g/dl Hct 41 (35-47) % MCV 87 (80-97) fL MCH 29 (27-31) pg MCHC 34 (31-36) g/dl RDW 14 (10.5-15) % Plt Count 226 (150-450) 10^3/ul MPV 9.3 (7.4-10.4) fL Neut % (Auto) 62.9 % Lymph % (Auto) 25.2 % Preston % (Auto) 6.4 % Eos % (Auto) 4.6 % Baso % (Auto) 0.9 % Absolute Neuts (auto) 4.2 (1.5-7.7) 10^3/ul Absolute Lymphs (auto) 1.7 (1.0-4.8) 10^3/ul Absolute Monos (auto) 0.4 (0-0.8) 10^3/ul Absolute Eos (auto) 0.3 (0-0.6) 10^3/ul Absolute Basos (auto) 0.1 (0-0.2) 10^3/ul Absolute Nucleated RBC 0 10^3/ul Nucleated RBC % 0 Result Diagrams: 04/26/18 06:53 Lab Statement: Any lab studies that have been ordered have been reviewed, and results considered in the medical decision making process. Headache Course/Dx - Course Course Of Treatment: During the course treatment, the patient is evaluated for diffuse headache with swelling to the right occipital area. She states this headache is worst of life, although rates this headache an 8/10. She is also endorsing left-sided hip pain. She states this just began this morning. Continues to remain ambulatory. Has not taken any Tylenol or ibuprofen for relief. As this headache is worst of life, CT brain obtained. Labs obtained as patient is concerned for a blood clot. D-dimer negative. CT brain shows no acute intracranial abnormalities. Physical examination, patient remains stable , normal vital signs, denies any blurry vision or double vision, smiling and acting appropriate on exam. A&O 3. She is diagnosed with sinusitis, however no antibiotics were given. She is afebrile and feels otherwise well. She will return if she develops any worsening or changing symptoms. She is given Tylenol for headache and she will follow-up with her PCP. Current pain radiating is 2/10. - Diagnoses Differential Diagnosis/HQI/PQRI: Migraine, Tension Headache, Viral Syndrome Provider Diagnoses: Headache, Sinusitis Discharge - Sign-Out/Discharge Documenting (check all that apply): Patient Departure - Discharge Plan Condition: Stable Disposition: HOME Patient Education Materials: Sinusitis (ED) Forms: *Work Release Referrals: Kristie Au MD [Primary Care Provider] - Additional Instructions: As discussed, no evidence of clot The CT of the brain was normal You do have sinusitis At this point this does not require antibiotics If you develop sweats and chills or fevers, return to the ED You can use [id number] medications such as VapoRub, nasal sprays and Emergent-C to help with your immune system - Billing Disposition and Condition Condition: STABLE Disposition: Home
[2018-04-26 07:28] LABS: INR 0.99 (0.77-1.02)
[2018-04-26] MEDS ORDERED: Acetaminophen TAB* 325 MG PO ONE (07:37)
[2018-04-26 07:57] VITALS: BP 129/81
== END 2018-04-26 07:52 | disposition home or self-care (01) ==
LOC: ED 05:42
DX: R51 Headache (principal); J32.9 Chronic sinusitis, unspecified; Z72.0 Tobacco use
CPT/HCPCS: 36415; 70450; 85025; 85379; 85610; 99282

== ENCOUNTER 2018-08-31 07:40 | Emergency (ER) | payer MEDICARE, MEDICAID ==
[2018-08-31 08:20] VITALS: BP 123/82
--- NOTE | 2018-08-31 08:55 | UC ---
Eye Complaint HPI - HPI Summary HPI Summary: 28-year-old female comes in with a chief complaint of bilateral eyelid swelling conjunctival injection and eye discharge. Patient is deaf mute. We're unable to obtain an interpreter and translator due to technical difficulties. All information was transferred by writing. Patient agreed to be seen using the writing medication technique. Patient also wishes to be checked for herpes as she believes she was exposed to somebody with herpes. She denies any herpetic symptoms. - History of Current Complaint Chief Complaint: UCEye Stated Complaint: BI LAT EYE CONCERN Time Seen by Provider: 08/31/18 08:05 Hx Last Menstrual Period: mar Pain Intensity: 0 - Allergies/Home Medications Allergies/Adverse Reactions: Allergies Allergy/AdvReac Type Severity Reaction Status Date / Time cefaclor [From Ceclor] Allergy Unknown Verified 08/31/18 08:12 Reaction Details PMH/Surg Hx/FS Hx/Imm Hx Previously Healthy: Yes - DEAF/MUTE Other History Of: Negative For: Anticoagulant Therapy - Surgical History Surgical History: Yes Surgery Procedure, Year, and Place: Tubal. Kidney stone removal - Family History Known Family History: Positive: None, Non-Contributory - Social History Alcohol Use: Occasionally Alcohol Amount: last alcohol drink was 2 years ago Substance Use Type: None Smoking Status (MU): Light Every Day Tobacco Smoker Amount Used/How Often: 3-4 CIGS/DAY When Did the Patient Quit Smoking/Using Tobacco: April 2017 Review of Systems All Other Systems Reviewed And Are Negative: Yes Constitutional: Positive: Negative Skin: Positive: Negative Eyes: Positive: Drainage, Eye Redness ENT: Positive: Other - DEAF/MUTE Respiratory: Positive: Negative Cardiovascular: Positive: Negative Gastrointestinal: Positive: Negative Motor: Positive: Negative Neurovascular: Positive: Negative Musculoskeletal: Positive: Negative Neurological: Positive: Negative Psychological: Positive: Negative Is Patient Immunocompromised?: No Physical Exam Triage Information Reviewed: Yes Appearance: Well-Appearing, No Pain Distress, Well-Nourished Vital Signs: Initial Vital Signs Temp 97.7 F 08/31/18 08:10 Pulse 87 08/31/18 08:10 Resp 16 08/31/18 08:10 BP 123/82 08/31/18 08:10 Pulse Ox 97 08/31/18 08:10 Vital Signs Reviewed: Yes Eyes: Positive: Conjunctiva Inflamed, Discharge, Other: - PERRLA/EOMI Neck: Positive: Supple Respiratory: Positive: No respiratory distress Musculoskeletal Exam: Normal Musculoskeletal: Positive: Strength Intact, ROM Intact Neurological: Positive: Other: - DEAF/MUTE Psychological: Positive: Age Appropriate Behavior Skin: Positive: Other - B/L EYE LIDS MILDLY SWOLLEN WITH ERYTHEMA Eye Complaint Course/Dx - Course Course Of Treatment: ALLERGIC VERSES INFECTIOUS B/L CONJUNCTIVITIS - Differential Dx/Diagnosis Provider Diagnosis: Conjunctivitis, acute, bilateral, Exposure to herpes simplex virus (HSV) Discharge - Sign-Out/Discharge Documenting (check all that apply): Patient Departure All imaging exams completed and their final reports reviewed: No Studies - Discharge Plan Condition: Stable Disposition: HOME Prescriptions: Ketotifen Fumarate [Zaditor] 1 drop BOTH EYES BID #5 ml Levocetirizine Dihydrochloride [Xyzal] 5 mg PO DAILY #30 tablet Tobramycin 0.3% OPHTH.ILIANA* 1 drop BOTH EYES Q4H #1 btl Patient Education Materials: Conjunctivitis (ED) Forms: *Work Release Referrals: Brii Carr NP [Primary Care Provider] - Additional Instructions: FOLLOW UP WITH YOUR DOCTOR IF NOT COMPLETELY IMPROVED. GET RECHECKED SOONER IF YOUR CONDITION WORSENS OR ANY QUESTIONS OR CONCERNS. - Billing Disposition and Condition Condition: STABLE Disposition: Home
[2018-09-01 13:33] LABS: Herpes Simplex Virus I IgG AB Positive (Negative); Herpes Simplex Virus II IgG AB Negative (Negative)
--- NOTE | 2018-09-02 07:23 | UC ---
- Progress Note Progress Note: Lab results from August 31, 2018 comes back. HSV IgM screen is negative. 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 HSV-2 IgG is negative. Nursing to call patient inform the patient of the results. 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 Course/Dx - Diagnoses Provider Diagnoses: Conjunctivitis, acute, bilateral, Exposure to herpes simplex virus (HSV) Discharge - Sign-Out/Discharge Documenting (check all that apply): Patient Departure All imaging exams completed and their final reports reviewed: No Studies - Discharge Plan Condition: Stable Disposition: HOME Prescriptions: Ketotifen Fumarate [Zaditor] 1 drop BOTH EYES BID #5 ml Levocetirizine Dihydrochloride [Xyzal] 5 mg PO DAILY #30 tablet Tobramycin 0.3% OPHTH.ILIANA* 1 drop BOTH EYES Q4H #1 btl Patient Education Materials: Conjunctivitis (ED) Forms: *Work Release Referrals: Brii Carr NP [Primary Care Provider] - Additional Instructions: FOLLOW UP WITH YOUR DOCTOR IF NOT COMPLETELY IMPROVED. GET RECHECKED SOONER IF YOUR CONDITION WORSENS OR ANY QUESTIONS OR CONCERNS. - Billing Disposition and Condition Condition: STABLE Disposition: Home
== END 2018-08-31 09:09 | disposition home or self-care (01) ==
LOC: UCCORT 07:40
DX: H10.33 Unspecified acute conjunctivitis, bilateral (principal); Z20.828 Contact with and (suspected) exposure to other viral communicable diseases; H91.3 Deaf nonspeaking, not elsewhere classified; F17.210 Nicotine dependence, cigarettes, uncomplicated
CPT/HCPCS: 86694; 86695; 86696; 99212; G0463

== ENCOUNTER 2018-11-06 14:57 | Emergency (ER) | payer MEDICARE, MEDICAID ==
[2018-11-06 15:20] VITALS: BP 112/92
--- NOTE | 2018-11-06 15:32 | UC ---
Skin Complaint HPI - HPI Summary HPI Summary: Pt presents with worsening erythema to left anterior upper thigh , and right anterior anabaptist, that pt described as a small pimple and has "now spread". Pt is deaf and communication ws done through written notes. - History of Current Complaint Chief Complaint: UCSkin Time Seen by Provider: 11/06/18 15:18 Stated Complaint: SKIN CONCERN LEFT LEG Hx Obtained From: Patient Hx Last Menstrual Period: mar ?: No Onset/Duration: Gradual Onset, Lasting Days, Still Present, Worse Since - onset Skin Exposure Onset/Duration: Days Ago Timing: Constant Onset Severity: Mild Current Severity: Mild Pain Intensity: 0 Location: Discrete, Face Character: Redness Aggravating Factor(s): Touch Alleviating Factor(s): Nothing Associated Signs & Symptoms: Positive: Tenderness - Allergy/Home Medications Allergies/Adverse Reactions: Allergies Allergy/AdvReac Type Severity Reaction Status Date / Time cefaclor [From Ceclor] Allergy Unknown Verified 11/06/18 15:20 Reaction Details PMH/Surg Hx/FS Hx/Imm Hx Previously Healthy: Yes Other History Of: Negative For: Anticoagulant Therapy - Surgical History Surgical History: Yes Surgery Procedure, Year, and Place: Tubal. Kidney stone removal - Family History Known Family History: Positive: Non-Contributory - Social History Occupation: Works From/At Home Lives: With Family Alcohol Use: Occasionally Alcohol Amount: last alcohol drink was 2 years ago Substance Use Type: None Smoking Status (MU): Light Every Day Tobacco Smoker Amount Used/How Often: 3-4 CIGS/DAY Have You Smoked in the Last Year: Yes When Did the Patient Quit Smoking/Using Tobacco: April 2017 Review of Systems All Other Systems Reviewed And Are Negative: Yes Constitutional: Positive: Negative Skin: Positive: Other - erythema Eyes: Positive: Negative ENT: Positive: Negative Respiratory: Positive: Negative Cardiovascular: Positive: Negative Gastrointestinal: Positive: Negative Genitourinary: Positive: Negative Motor: Positive: Negative Neurovascular: Positive: Negative Musculoskeletal: Positive: Negative Neurological: Positive: Negative Psychological: Positive: Negative Is Patient Immunocompromised?: No Physical Exam Triage Information Reviewed: Yes Appearance: Well-Appearing Vital Signs: Initial Vital Signs Temp 98.6 F 11/06/18 15:15 Pulse 75 11/06/18 15:15 Resp 16 11/06/18 15:15 BP 112/92 11/06/18 15:15 Pulse Ox 99 11/06/18 15:15 Vital Signs Reviewed: Yes ENT Exam: Other - pt is deaf Dental Exam: Normal Neck exam: Normal Musculoskeletal Exam: Normal Neurological Exam: Normal Psychological Exam: Normal Skin Exam: Other - multiple tattoos;, mild erythematous area ~ 3 cm in diameter on left upper anterior thigh and ~ 2cm in diamter on right anabaptist. No flucuant mass, no significant drainage, no red streaking Course/Dx - Differential Diagnoses - Skin Complaint Differential Diagnoses: Cellulitis, Impetigo - Diagnoses Provider Diagnosis: Skin infection Discharge - Sign-Out/Discharge Documenting (check all that apply): Patient Departure All imaging exams completed and their final reports reviewed: No Studies - Discharge Plan Condition: Stable Disposition: HOME Prescriptions: Mupirocin 2% OINT* [Bactroban 2 % Oint*] 1 applic TOPICAL Q12H #1 tube Patient Education Materials: Impetigo (ED) Referrals: Brii Carr NP [Primary Care Provider] - If Needed - Billing Disposition and Condition Condition: STABLE Disposition: Home
== END 2018-11-06 15:39 | disposition home or self-care (01) ==
LOC: UCCORT 14:57
DX: L08.9 Local infection of the skin and subcutaneous tissue, unspecified (principal); Z88.1 Allergy status to other antibiotic agents; F17.210 Nicotine dependence, cigarettes, uncomplicated
CPT/HCPCS: 99212; G0463

== ENCOUNTER 2018-11-08 19:10 | Emergency (ER) | payer MEDICARE, MEDICAID ==
[2018-11-08 20:06] VITALS: BP 123/86
--- NOTE | 2018-11-08 20:19 | UC ---
General HPI - HPI Summary HPI Summary: PT PRESENTS C/O A WORSENING RASH FOR 2-3 WEEKS. SHE WAS HERE 2 DAYS AGO AND TX WITH BACTROBAN OINTMENT; HOWEVER, THAT EMERSON PLUS RASH IS WORSENING. THE RASH BEGAN PIMPLE TYPE SPOTS THAT ITCH AND BURN. PT HAS BEEN PICKING AND DIGGING AT ALL THE AREAS INCLUDING HER L THIGH, R SCIENTOLOGIST AND BEHIND BOTH EAR. NO HX MRSA OR DM. BOYFRIEND HAS SAME "FROM A SPIDER BITE" ON HIS CHIN. - History of Current Complaint Chief Complaint: UCSkin Stated Complaint: FOLLOW UP LEG AND FACIAL ISSUE Time Seen by Provider: 11/08/18 20:07 Hx Obtained From: Other: - PATIENT AND HER FRIEND WITH CELL PHONE AND PAPER NOTES. Hx Last Menstrual Period: tubal ligation Pain Intensity: 4 - Allergy/Home Medications Allergies/Adverse Reactions: Allergies Allergy/AdvReac Type Severity Reaction Status Date / Time cefaclor [From Ceclor] Allergy Unknown Verified 11/06/18 15:20 Reaction Details PMH/Surg Hx/FS Hx/Imm Hx - Additional Past Medical History Additional PMH: DEAF Other History Of: Negative For: Anticoagulant Therapy - Surgical History Surgical History: Yes Surgery Procedure, Year, and Place: Tubal. Kidney stone removal - Family History Known Family History: Positive: None, Non-Contributory - Social History Alcohol Use: Occasionally Alcohol Amount: last alcohol drink was 2 years ago Substance Use Type: None Smoking Status (MU): Light Every Day Tobacco Smoker Amount Used/How Often: 3-4 CIGS/DAY Have You Smoked in the Last Year: Yes When Did the Patient Quit Smoking/Using Tobacco: April 2017 Review of Systems All Other Systems Reviewed And Are Negative: Yes Constitutional: Negative: Fever, Chills, Fatigue Skin: Positive: Rash Physical Exam Triage Information Reviewed: Yes Appearance: Well-Appearing Vital Signs: Initial Vital Signs Temp 98.3 F 11/08/18 19:54 Pulse 94 11/08/18 19:54 Resp 16 11/08/18 19:54 BP 123/86 11/08/18 19:54 Pulse Ox 99 11/08/18 19:54 Vital Signs Reviewed: Yes Eyes: Positive: Conjunctiva Clear ENT: Positive: Normal ENT inspection Neck: Positive: Supple Respiratory: Positive: No respiratory distress Musculoskeletal: Positive: ROM Intact, No Edema Neurological: Positive: Alert Psychological: Positive: Age Appropriate Behavior Skin Exam: Normal, Other - pt has excoriated areas on her L anterior thigh, R oriental orthodox and behind both ears. All sites have adjacent pimles which is how the excoriated areas started. no blistering, burrows or petechial lesions. Culture obtained from thigh. Course/Dx - Differential Dx - Multi-Symptom Differential Diagnoses: Other - no concern for infestation. begins as pimples that burn and itch then pt picks causing excoriations. boyfriend with same thus will cover for mrsa. pattern not c/w insect bites, contact dermatitis or scabied. - Diagnoses Provider Diagnosis: Skin infection Discharge - Sign-Out/Discharge Documenting (check all that apply): Patient Departure All imaging exams completed and their final reports reviewed: No Studies - Discharge Plan Condition: Stable Disposition: HOME Prescriptions: Sulfamethox/Trimethoprim SUSP* [Bactrim Susp*] 20 ml PO BID 10 Days #400 ml Patient Education Materials: MRSA (Methicillin-Resistant Staphylococcus Aureus ) (ED), Cellulitis (ED) Forms: *Work Release Referrals: rBii Carr NP [Primary Care Provider] - 3 Days Additional Instructions: GO TO THE ER FOR ANY WORSENING. - Billing Disposition and Condition Condition: STABLE Disposition: Home
[2018-11-08] MEDS ORDERED: Sulfamethox/Trimethoprim SUSP* 20 ML UDC PO ONE (20:23)
--- NOTE | 2018-11-12 07:17 | UC ---
- Progress Note Progress Note: + Staph, on Bactrim + sensitive no change hongj 11/12/18 Course/Dx - Diagnoses Provider Diagnoses: Skin infection Discharge - Sign-Out/Discharge Documenting (check all that apply): Post-Discharge Follow Up All imaging exams completed and their final reports reviewed: No Studies - Discharge Plan Condition: Stable Disposition: HOME Prescriptions: Sulfamethox/Trimethoprim SUSP* [Bactrim Susp*] 20 ml PO BID 10 Days #400 ml Patient Education Materials: MRSA (Methicillin-Resistant Staphylococcus Aureus ) (ED), Cellulitis (ED) Forms: *Work Release Referrals: Brii Carr, SANAM [Primary Care Provider] - 3 Days Additional Instructions: GO TO THE ER FOR ANY WORSENING. - Billing Disposition and Condition Condition: STABLE Disposition: Home
== END 2018-11-08 20:51 | disposition home or self-care (01) ==
LOC: UCCORT 19:10
DX: L08.9 Local infection of the skin and subcutaneous tissue, unspecified (principal); H91.90 Unspecified hearing loss, unspecified ear
CPT/HCPCS: 87070; 87077; 87186; 87205; 99212; A9270-GY; G0463

== ENCOUNTER 2018-12-06 17:50 | Emergency (ER) | payer MEDICARE, MEDICAID ==
[2018-12-06 18:45] VITALS: BP 128/85
--- NOTE | 2018-12-06 20:44 | UC ---
Abdominal Pain Female HPI - HPI Summary HPI Summary: Pt presents with c/o left side flank and abdominal pain that began ~ 1-2 weeks ago. Pt is concerned that she may have another kidney stone. Pt denies urinary symptoms, of frequency, hematuria, or dysuria. - History of Current Complaint Chief Complaint: UCGeneralIllness Stated Complaint: LEFT SIDE KIDNEY PAIN Time Seen by Provider: 12/06/18 18:53 Hx Obtained From: Patient Hx Last Menstrual Period: 1 month ago/tubal ligation ?: No Onset/Duration: Gradual Onset, Lasting Weeks, Still Present Timing: Constant Severity Initially: Mild Severity Currently: Mild Pain Intensity: 0 Pain Scale Used: 0-10 Numeric Location: Discrete At: LLQ Radiates to: Flank - left Character: Dull Aggravating Factor(s): Nothing Alleviating Factor(s): Nothing Associated Signs and Symptoms: Positive: Back Pain - Risk Factors Ectopic Risk Factor: Negative Ovarian Torsion Risk Factor: Reproductive Age, Tubal Ligation Allergies/Adverse Reactions: Allergies Allergy/AdvReac Type Severity Reaction Status Date / Time cefaclor [From Ceclor] Allergy Unknown Verified 11/06/18 15:20 Reaction Details Home Medications: Home Medications NK [No Home Medications Reported] 12/06/18 [History Confirmed 12/06/18] PMH/Surg Hx/FS Hx/Imm Hx Previously Healthy: Yes - Pt is deaf Other History Of: Negative For: Anticoagulant Therapy - Surgical History Surgical History: Yes Surgery Procedure, Year, and Place: Tubal. Kidney stone removal - Family History Known Family History: Positive: None, Non-Contributory - Social History Occupation: Employed Full-time Lives: With Family Alcohol Use: Occasionally Alcohol Amount: last alcohol drink was 2 years ago Substance Use Type: None Smoking Status (MU): Light Every Day Tobacco Smoker Amount Used/How Often: 3-4 CIGS/DAY Have You Smoked in the Last Year: Yes When Did the Patient Quit Smoking/Using Tobacco: April 2017 Review of Systems All Other Systems Reviewed And Are Negative: Yes Constitutional: Positive: Negative Skin: Positive: Negative Eyes: Positive: Negative ENT: Positive: Negative Respiratory: Positive: Negative Cardiovascular: Positive: Negative Gastrointestinal: Positive: Abdominal Pain Genitourinary: Positive: Other - left flank pain Motor: Positive: Negative Neurovascular: Positive: Negative Musculoskeletal: Positive: Negative Neurological: Positive: Negative Psychological: Positive: Negative Is Patient Immunocompromised?: No Physical Exam Triage Information Reviewed: Yes Appearance: Well-Appearing, No Pain Distress Vital Signs: Initial Vital Signs Temp 98.6 F 12/06/18 18:35 Pulse 68 12/06/18 18:35 Resp 16 12/06/18 18:35 BP 128/85 12/06/18 18:35 Pulse Ox 100 12/06/18 18:35 Vital Signs Reviewed: Yes Eye Exam: Normal ENT: Positive: Other - pt is deaf Dental Exam: Normal Neck exam: Normal Respiratory Exam: Normal Abdominal Exam: Normal Abdomen Description: Positive: Nontender, CVA Tenderness (L) Musculoskeletal Exam: Normal Neurological Exam: Normal Psychological Exam: Normal Skin Exam: Normal Abd Pain Female Course/Dx - Differential Dx/Diagnosis Differential Diagnosis: Urinary Tract Infection Provider Diagnosis: Left sided abdominal pain, Left flank pain Discharge ED - Sign-Out/Discharge Documenting (check all that apply): Patient Departure All imaging exams completed and their final reports reviewed: No Studies - Discharge Plan Condition: Stable Disposition: HOME Patient Education Materials: Acute Abdominal Pain (ED) Referrals: Karishma Kang MD [Medical Doctor] - Additional Instructions: Please establish care with a PCP. We have recommended a provider for you that seems to fit your needs. Please note that the provider we recommended will begin taking patients after December 27. - Billing Disposition and Condition Condition: STABLE Disposition: Home
== END 2018-12-06 19:20 | disposition home or self-care (01) ==
LOC: UCCORT 17:50
DX: R10.9 Unspecified abdominal pain (principal); Z87.442 Personal history of urinary calculi; H91.90 Unspecified hearing loss, unspecified ear; F17.210 Nicotine dependence, cigarettes, uncomplicated
CPT/HCPCS: 81003; 84702; 87086; 99211; G0463